=== PATIENT | female | born 1990 | race Two or more races ===

== ENCOUNTER 2023-12-26 18:55 | Emergency (ER) | payer MEDICAID, OTHER ==
[~2023-12-26] VITALS: Ht 160 cm; Wt 86.0 kg
[2023-12-26 19:18] VITALS: BP 122/76; PULSE 72; RESP 16; O2SAT 96
[2023-12-26] MEDS ORDERED: IBUP-1455 PO (22:11)
[2023-12-26] MEDS ORDERED: CYCL-837 PO (22:11)
[2023-12-26] MEDS: KETOROLAC TROMETH 30 MG/ML 1ML VIAL IM ONE (22:14)
== END 2023-12-26 22:30 | disposition home or self-care (01) ==
LOC: ER 18:55
DX: M54.2 Cervicalgia (principal); M25.571 Pain in right ankle and joints of right foot; V43.52XA Car driver injured in collision with other type car in traffic accident, initial encounter; Y93.89 Activity, other specified; Y92.488 Other paved roadways as the place of occurrence of the external cause; Y99.8 Other external cause status
CPT/HCPCS: 72040; 72070; 96372; 99284; J1885

== ENCOUNTER 2023-12-27 10:56 | Emergency (ER) | payer MEDICAID, OTHER ==
[~2023-12-27] VITALS: Ht 160 cm; Wt 88.5 kg
[~2023-12-27 10:56] MED LIST: CYCL-837 PO; IBUP-1455 PO
[2023-12-27 13:10] VITALS: BP 114/68; PULSE 61; RESP 15; TEMP 97; O2SAT 97
[2023-12-27] MEDS: KETOROLAC TROMETH 60MG/2ML VIAL IM ONE (13:10)
== END 2023-12-27 18:19 | disposition home or self-care (01) ==
LOC: ER 10:56
DX: M54.6 Pain in thoracic spine (principal); W51.XXXA Accidental striking against or bumped into by another person, initial encounter; Y93.89 Activity, other specified; Y92.69 Other specified industrial and construction area as the place of occurrence of the external cause; Y99.8 Other external cause status
CPT/HCPCS: 96372; 99283; J1885